=== PATIENT | female | born 1955 | race African-American/Black ===

== ENCOUNTER 2021-01-04 05:47 | Inpatient (IN) | payer OTHER ==
[2020-12-29 16:35] VITALS: BMI 27.1
[2021-01-04] MEDS ORDERED: MIDAZOLAM HCL 2 MG/2 ML SINGLE DOSE VIAL ONE (07:09)
[2021-01-04] MEDS ORDERED: SODIUM CHLORIDE 0.9% P/F 10 ML VIAL IJ ONE ×2 (07:09→07:14)
[2021-01-04] MEDS ORDERED: BUPIVACAINE LIPOSOME/PF (EXPAREL) 266 MG/20 ML VIAL ONE (07:09)
[2021-01-04] MEDS ORDERED: PROPOFOL 20 ML ONE ×2 (07:12)
[2021-01-04] MEDS ORDERED: PHENYLEPHRINE HCL 10 MG/1 ML SINGLE DOSE VIAL ONE (07:14)
[2021-01-04] MEDS ORDERED: EPHEDRINE SULFATE/0.9% NACL/PF 50 MG/10 ML SYRINGE NR ONE (07:15)
[2021-01-04] MEDS ORDERED: SUCCINYLCHOLINE CHLORIDE 200 MG/10 ML SYRINGE ONE (07:16)
[2021-01-04] MEDS ORDERED: ceFAZolin SODIUM 1 GM VIAL ONE ×2 (09:25→10:25)
[2021-01-04] MEDS ORDERED: TRANEXAMIC ACID 1000 MG/10 ML VIAL ONE ×2 (09:29→10:25)
[2021-01-04] MEDS ORDERED: LIDOCAINE HCL/PF 2% SDV 5ML VIAL ONE (09:32)
[2021-01-04] MEDS ORDERED: ONDANSETRON 4 MG/2 ML VIAL ONE (10:19)
[2021-01-04] MEDS ORDERED: DEXAMETHASONE SOD PHOSPHATE 4 MG/1 ML VIAL ONE (10:19)
[2021-01-04] MEDS ORDERED: MAGNESIUM HYDROX 2400MG/30ML ORAL SUSPENSION 30 ML CUP PO PRN (12:05)
[2021-01-04] MEDS ORDERED: LACTATED RINGERS SOLUTION 1,000 ML IV SCH ×2 (12:15→12:30)
[2021-01-04] MEDS ORDERED: ONDANSETRON 4 MG/2 ML VIAL IVPUSH PRN (12:19)
[2021-01-04] MEDS ORDERED: ACETAMINOPHEN 1000 MG/100 ML VIAL (NON FORMULARY) IVPB ONE (12:21)
[2021-01-04] MEDS ORDERED: oxyCODONE HCL 5 MG TABLET PO PRN (12:21)
[2021-01-04] MEDS ORDERED: ACETAMINOPHEN INJECTION 100 ML IVPB ONE (12:27)
[2021-01-04] MEDS: ACETAMINOPHEN 325 MG TABLET (FP) PO SCH ×2 (12:30→18:37)
[2021-01-04] MEDS: ISOSORBIDE DINITRATE 20 MG TABLET PO SCH ×2 (13:45→17:09)
[2021-01-04] MEDS ORDERED: ISOSORBIDE MONONITRATE 20 MG TABLET PO SCH (14:00)
[2021-01-04] MEDS: oxyCODONE HCL 5 MG TABLET PO PRN ×3 (15:01→22:17)
[2021-01-04] MEDS: CEFAZOLIN 2 GM/D5W 2 GM/50 ML ML IVPB SCH ×2 (17:09→22:16)
[2021-01-04] MEDS ORDERED: ISOSORBIDE DINITRATE 20 MG TABLET PO SCH (18:00)
[2021-01-04] MEDS ORDERED: PT OWN MED DRAWER 7, Y5N ONE ×2 (18:33→21:09)
[2021-01-04] MEDS ORDERED: NIFEdipine E.R 60 MG TABLET PO ONE (19:22)
[2021-01-04] MEDS: SENNOSIDES/DOCUSATE COMBO (SENNA PLUS) TABLET (UD) PO SCH (21:17)
[2021-01-04] MEDS: oxyCODONE HCL 10 MG SUSTAINED ACTING TABLET PO SCH (21:17)
[2021-01-04] MEDS: ATORVASTATIN CA 80 MG TABLET (FP) PO SCH (21:17)
[2021-01-04] MEDS: RANOLAZINE E.R. 500 MG TABLET (FP) PO SCH (21:17)
[2021-01-04] MEDS: ASPIRIN 81 MG CHEWABLE TABLETS PO SCH (21:17)
[2021-01-04] MEDS: FERROUS SO4 325 MG TABLET (FP) PO SCH (21:17)
[2021-01-05] MEDS: ACETAMINOPHEN 325 MG TABLET (FP) PO SCH ×3 (00:35→12:14)
[2021-01-05] MEDS: CEFAZOLIN 2 GM/D5W 2 GM/50 ML ML IVPB SCH (05:33)
[2021-01-05] MEDS ORDERED: PT OWN MED DRAWER 7, Y5N ONE ×4 (05:58→21:05)
[2021-01-05] MEDS: NIFEdipine E.R 60 MG TABLET PO SCH ×2 (06:34→10:31)
[2021-01-05 07:23] LABS: HEMATOCRIT 36.9 % (32.4-45.2); HEMOGLOBIN 11.9 GM/dl (10.7-15.3); MCHC 32.3 g/dl (32.0-36.0); MEAN CELL VOLUME 86.8 fl (80-96); MEAN PLT VOLUME 9.4 fl (7.5-11.1); PLATELET COUNT 233 K/MM3 (134-434); RBC 4.25 M/mm3 (3.60-5.2); WHITE BLOOD COUNT 11.6 K/mm3 (4.0-10.8)
[2021-01-05 07:34] LABS: CALCIUM 8.8 mg/dl (8.5-10); CREATININE 2.7 mg/dl (0.55-1.3); POTASSIUM 3.5 mmol/L (3.5-5.1)
[2021-01-05] MEDS ORDERED: CELECOXIB 200 MG CAPSULE PO SCH (10:00)
[2021-01-05] MEDS: PANTOPRAZOLE 40 MG TABLET PO SCH (10:30)
[2021-01-05] MEDS: FOLIC ACID 1 MG TABLET (FP) PO SCH (10:31)
[2021-01-05] MEDS: ASPIRIN 81 MG CHEWABLE TABLETS PO SCH ×2 (10:32→21:11)
[2021-01-05] MEDS: ISOSORBIDE DINITRATE 20 MG TABLET PO SCH ×3 (10:34→17:58)
[2021-01-05] MEDS: ONDANSETRON 4 MG/2 ML VIAL IVPUSH PRN (10:35)
[2021-01-05] MEDS: RANOLAZINE E.R. 500 MG TABLET (FP) PO SCH ×2 (10:37→21:11)
[2021-01-05] MEDS: FERROUS SO4 325 MG TABLET (FP) PO SCH ×2 (10:39→21:11)
[2021-01-05] MEDS: SENNOSIDES/DOCUSATE COMBO (SENNA PLUS) TABLET (UD) PO SCH ×2 (10:39→21:11)
[2021-01-05] MEDS: oxyCODONE HCL 10 MG SUSTAINED ACTING TABLET PO SCH (10:39)
[2021-01-05] MEDS: MAG HYDROX/AL HYDROX/SIMETH 30 ML UNIT-DOSE CUP PO PRN ×2 (10:40→17:54)
[2021-01-05] MEDS ORDERED: morphine SULFATE 4 MG/ML VIAL IVPUSH PRN (14:20)
[2021-01-05] MEDS: ACETAMINOPHEN 500 MG TABLET (FP) PO SCH (17:51)
[2021-01-05] MEDS: ATORVASTATIN CA 80 MG TABLET (FP) PO SCH (21:11)
[2021-01-05] MEDS: traMADol HCL 50 MG TABLET PO PRN (23:26)
[2021-01-06] MEDS: ACETAMINOPHEN 500 MG TABLET (FP) PO SCH ×3 (01:57→13:12)
[2021-01-06 08:07] LABS: ALBUMIN 3.7 g/dl (3.4-5.0); BILIRUBIN,TOTAL 0.7 mg/dl (0.2-1); CALCIUM 8.7 mg/dl (8.5-10); CREATININE 2.7 mg/dl (0.55-1.3); POTASSIUM 3.6 mmol/L (3.5-5.1); TOT PROT 7.1 g/dl (6.4-8.2)
[2021-01-06 08:14] LABS: HEMATOCRIT 37.3 % (32.4-45.2); RBC 4.28 M/mm3 (3.60-5.2)
[2021-01-06 08:18] LABS: HEMOGLOBIN 12.1 GM/dl (10.7-15.3); MCH 28.3 pg (25.7-33.7); MCHC 32.5 g/dl (32.0-36.0); MEAN CELL VOLUME 87.1 fl (80-96); MEAN PLT VOLUME 10.8 fl (7.5-11.1); PLATELET COUNT 232 K/MM3 (134-434); RDW 13.9 % (11.6-15.6); WHITE BLOOD COUNT 12.2 K/mm3 (4.0-10.8)
[2021-01-06] MEDS: ISOSORBIDE DINITRATE 20 MG TABLET PO SCH ×2 (08:18→13:12)
[2021-01-06] MEDS: ONDANSETRON 4 MG/2 ML VIAL IVPUSH PRN (08:19)
[2021-01-06] MEDS ORDERED: PT OWN MED DRAWER 7, Y5N ONE (09:03)
[2021-01-06] MEDS: SENNOSIDES/DOCUSATE COMBO (SENNA PLUS) TABLET (UD) PO SCH (09:11)
[2021-01-06] MEDS: ASPIRIN 81 MG CHEWABLE TABLETS PO SCH (09:11)
[2021-01-06] MEDS: FOLIC ACID 1 MG TABLET (FP) PO SCH (09:12)
[2021-01-06] MEDS: NIFEdipine E.R 60 MG TABLET PO SCH (09:12)
[2021-01-06] MEDS: PANTOPRAZOLE 40 MG TABLET PO SCH (09:12)
[2021-01-06] MEDS: traMADol HCL 50 MG TABLET PO PRN (09:13)
[2021-01-06] MEDS: MAG HYDROX/AL HYDROX/SIMETH 30 ML UNIT-DOSE CUP PO PRN (09:13)
[2021-01-06] MEDS: FERROUS SO4 325 MG TABLET (FP) PO SCH (09:15)
[2021-01-06] MEDS: RANOLAZINE E.R. 500 MG TABLET (FP) PO SCH (09:23)
[2021-01-06 14:03] VITALS: BP 130/50; PULSE 67; TEMP 97.9
== END 2021-01-06 16:12 | disposition home or self-care (01) | DRG 470 ==
LOC: FM/S 05:47
PROVIDERS: ADMIT Orthopaedic Surgery Orthopaedic Surgery of the Spine; ATTEND Orthopaedic Surgery Orthopaedic Surgery of the Spine
PROC: 0SRD0JZ Replacement of Left Knee Joint with Synthetic Substitute, Open Approach (ICD-10-PCS; principal; 2021-01-04 09:54)
DX: M17.12 Unilateral primary osteoarthritis, left knee (principal); E78.5 Hyperlipidemia, unspecified; I25.10 Atherosclerotic heart disease of native coronary artery without angina pectoris; E87.6 Hypokalemia; M81.0 Age-related osteoporosis without current pathological fracture; I12.9 Hypertensive chronic kidney disease with stage 1 through stage 4 chronic kidney disease, or unspecified chronic kidney disease; N18.30 Chronic kidney disease, stage 3 unspecified
CPT/HCPCS: 36415; 73560-TC-LT-FY; 80048; 80053; 82962; 85027; 93005; 94760; 97010-GP; 97116-GP; 97162-GP; J0131

== ENCOUNTER 2021-09-27 05:52 | Inpatient (IN) | payer OTHER ==
[2021-09-25 13:52] VITALS: BMI 26.4
[2021-09-27] MEDS ORDERED: LOCK ITEM NR ONE (06:31)
[2021-09-27] MEDS ORDERED: SODIUM CHLORIDE 0.9% P/F 10 ML VIAL IJ ONE (07:03)
[2021-09-27] MEDS ORDERED: BUPIVACAINE LIPOSOME/PF (EXPAREL) 266 MG/20 ML VIAL ONE (07:03)
[2021-09-27] MEDS ORDERED: BUPIVACAINE HCL/PF 0.5% (5MG/ML) 10 ML VIAL ONE (07:03)
[2021-09-27] MEDS ORDERED: MIDAZOLAM HCL 2 MG/2 ML SINGLE DOSE VIAL ONE ×2 (07:03→07:42)
[2021-09-27] MEDS ORDERED: BUPIVACAINE HCL 50 ML ONE (07:39)
[2021-09-27] MEDS ORDERED: SUCCINYLCHOLINE CHLORIDE 200 MG/10 ML SYRINGE ONE (07:43)
[2021-09-27] MEDS ORDERED: PROPOFOL 20 ML ONE ×4 (07:43→08:23)
[2021-09-27] MEDS ORDERED: TRANEXAMIC ACID 1000 MG/10 ML VIAL ONE (08:36)
[2021-09-27] MEDS ORDERED: BENZOIN 118 ML SPRAY.PUMP TP ONE (09:56)
[2021-09-27] MEDS ORDERED: MAGNESIUM HYDROX 2400MG/30ML ORAL SUSPENSION 30 ML CUP PO PRN (10:31)
[2021-09-27] MEDS ORDERED: MAG HYDROX/AL HYDROX/SIMETH 30 ML UNIT-DOSE CUP PO PRN (10:31)
[2021-09-27] MEDS ORDERED: LACTATED RINGERS SOLUTION 1,000 ML IV SCH ×2 (10:45→11:00)
[2021-09-27] MEDS ORDERED: ONDANSETRON 4 MG/2 ML VIAL IVPUSH PRN (10:51)
[2021-09-27] MEDS ORDERED: oxyCODONE HCL 5 MG TABLET PO PRN (10:53)
[2021-09-27] MEDS: ONDANSETRON 4 MG/2 ML VIAL IVPUSH PRN ×2 (11:50→22:06)
[2021-09-27] MEDS: ACETAMINOPHEN 500 MG TABLET (FP) PO SCH ×2 (13:17→18:09)
[2021-09-27] MEDS: ISOSORBIDE DINITRATE 20 MG TABLET PO SCH ×2 (13:17→18:09)
[2021-09-27] MEDS: oxyCODONE HCL 5 MG TABLET PO PRN ×2 (13:18→16:31)
[2021-09-27] MEDS ORDERED: DEXTROSE 5%-WATER - 50 ML IVPB ONE ×2 (15:51→21:28)
[2021-09-27] MEDS ORDERED: ceFAZolin SODIUM 1 GM VIAL ONE ×2 (15:51→21:28)
[2021-09-27] MEDS: CEFAZOLIN 2 GM in DEXTROSE 5%-WATER - 50 ML IVPB SCH ×2 (16:12→21:57)
[2021-09-27] MEDS ORDERED: KETOROLAC TROMETHAMINE 30 MG/1 ML VIAL IVPUSH PRN (17:40)
[2021-09-27] MEDS: METOCLOPRAMIDE HCL INJECTION 10 MG/2 ML VIAL IVPUSH PRN (18:09)
[2021-09-27] MEDS ORDERED: HYDROmorphone HCl 2 MG/ML VIAL IVPUSH PRN (18:19)
[2021-09-27] MEDS: HYDROmorphone HCl 2 MG/ML VIAL IVPB PRN (18:49)
[2021-09-27] MEDS: SENNOSIDES/DOCUSATE COMBO (SENNA PLUS) TABLET (UD) PO SCH (21:58)
[2021-09-27] MEDS: ASPIRIN COATED 81 MG TABLET.EC PO SCH (21:59)
[2021-09-27] MEDS: oxyCODONE HCL 10 MG SUSTAINED ACTING TABLET PO SCH (21:59)
[2021-09-27] MEDS: RANOLAZINE E.R. 500 MG TABLET (FP) PO SCH (21:59)
[2021-09-27] MEDS ORDERED: FAMOTIDINE 20 MG TABLET PO SCH (22:00)
[2021-09-28] MEDS: METOCLOPRAMIDE HCL INJECTION 10 MG/2 ML VIAL IVPUSH PRN ×2 (00:46→09:00)
[2021-09-28] MEDS: ACETAMINOPHEN 500 MG TABLET (FP) PO SCH ×4 (03:03→18:19)
[2021-09-28] MEDS ORDERED: ceFAZolin SODIUM 1 GM VIAL ONE (03:18)
[2021-09-28] MEDS ORDERED: DEXTROSE 5%-WATER - 50 ML IVPB ONE (03:19)
[2021-09-28] MEDS: HYDROmorphone HCl 2 MG/ML VIAL IVPB PRN (03:23)
[2021-09-28] MEDS: CEFAZOLIN 2 GM in DEXTROSE 5%-WATER - 50 ML IVPB SCH (03:30)
[2021-09-28] MEDS: ONDANSETRON 4 MG/2 ML VIAL IVPUSH PRN (06:10)
[2021-09-28 07:44] LABS: HEMATOCRIT 37.4 % (32.4-45.2); MCHC 32.2 g/dl (32.0-36.0); MEAN PLT VOLUME 9.6 fl (7.5-11.1); PLATELET COUNT 225 10^3/uL (134-434); RBC 4.46 M/mm3 (3.60-5.2); RDW 15.5 % (11.6-15.6); WHITE BLOOD COUNT 12.6 K/mm3 (4.0-10.8)
[2021-09-28 07:59] LABS: CALCIUM 9.5 mg/dl (8.5-10); CREATININE 3.4 mg/dl (0.55-1.3)
[2021-09-28] MEDS ORDERED: ONDANSETRON 4 MG/2 ML VIAL IVPUSH PRN (09:41)
[2021-09-28] MEDS ORDERED: traMADol HCL 50 MG TABLET PO PRN (09:41)
[2021-09-28] MEDS ORDERED: DEXAMETHASONE SOD PHOSPHATE 4 MG/1 ML VIAL IVPUSH PRN (09:41)
[2021-09-28] MEDS: oxyCODONE HCL 10 MG SUSTAINED ACTING TABLET PO SCH ×2 (10:00→22:39)
[2021-09-28] MEDS: RANOLAZINE E.R. 500 MG TABLET (FP) PO SCH ×2 (10:04→21:16)
[2021-09-28] MEDS: SENNOSIDES/DOCUSATE COMBO (SENNA PLUS) TABLET (UD) PO SCH ×2 (10:04→21:21)
[2021-09-28] MEDS: ASPIRIN COATED 81 MG TABLET.EC PO SCH ×2 (10:04→21:16)
[2021-09-28] MEDS: NIFEdipine E.R 60 MG TABLET PO SCH (10:05)
[2021-09-28] MEDS: CELECOXIB 200 MG CAPSULE PO SCH (10:05)
[2021-09-28] MEDS: ISOSORBIDE DINITRATE 20 MG TABLET PO SCH ×3 (10:05→18:18)
[2021-09-28] MEDS: amLODIPine BESYLATE 10 MG TABLET (FP) PO SCH (10:05)
[2021-09-28] MEDS: PANTOPRAZOLE 40 MG TABLET PO SCH (10:05)
[2021-09-28] MEDS: SCOPOLAMINE HYDROBROMIDE 1 PATCH PATCH.TD72 TD SCH ×2 (10:07→12:37)
[2021-09-28] MEDS ORDERED: ACETAMINOPHEN 1000 MG/100 ML VIAL IVPB ONE (11:30)
[2021-09-28 13:14] LABS: EPITHELIAL CELLS FEW /hpf
[2021-09-28] MEDS: oxyCODONE HCL 5 MG TABLET PO PRN (21:17)
[2021-09-28] MEDS ORDERED: ATORVASTATIN CA 80 MG TABLET (FP) PO SCH (22:00)
[2021-09-29] MEDS: ACETAMINOPHEN 500 MG TABLET (FP) PO SCH ×3 (00:09→12:11)
[2021-09-29 07:53] LABS: HEMATOCRIT 35.9 % (32.4-45.2); HEMOGLOBIN 11.8 GM/dl (10.7-15.3); MCH 27.5 pg (25.7-33.7); MCHC 32.9 g/dl (32.0-36.0); MEAN CELL VOLUME 83.7 fl (80-96); MEAN PLT VOLUME 9.9 fl (7.5-11.1); PLATELET COUNT 232 10^3/uL (134-434); RBC 4.29 M/mm3 (3.60-5.2); RDW 15.4 % (11.6-15.6); WHITE BLOOD COUNT 10.7 K/mm3 (4.0-10.8)
[2021-09-29 08:08] LABS: ALBUMIN 3.6 g/dl (3.4-5.0); BILIRUBIN,TOTAL 0.7 mg/dl (0.2-1); CALCIUM 9.5 mg/dl (8.5-10); CREATININE 3.5 mg/dl (0.55-1.3); MAGNESIUM 1.9 mg/dL (1.8-2.4); TOT PROT 7.4 g/dl (6.4-8.2)
[2021-09-29 09:10] VITALS: BP 136/55; PULSE 68; TEMP 98.7
[2021-09-29] MEDS: NIFEdipine E.R 60 MG TABLET PO SCH (09:10)
[2021-09-29] MEDS: ASPIRIN COATED 81 MG TABLET.EC PO SCH (09:10)
[2021-09-29] MEDS: PANTOPRAZOLE 40 MG TABLET PO SCH (09:10)
[2021-09-29] MEDS: ISOSORBIDE DINITRATE 20 MG TABLET PO SCH ×2 (09:10→12:11)
[2021-09-29] MEDS: oxyCODONE HCL 10 MG SUSTAINED ACTING TABLET PO SCH (09:11)
[2021-09-29] MEDS: CELECOXIB 200 MG CAPSULE PO SCH (09:11)
[2021-09-29] MEDS: SENNOSIDES/DOCUSATE COMBO (SENNA PLUS) TABLET (UD) PO SCH (09:11)
[2021-09-29] MEDS: amLODIPine BESYLATE 10 MG TABLET (FP) PO SCH (09:11)
[2021-09-29] MEDS: RANOLAZINE E.R. 500 MG TABLET (FP) PO SCH (09:13)
== END 2021-09-29 12:58 | disposition home or self-care (01) | DRG 302 ==
LOC: FASUSAT 05:52 → FM/S 10:13 → FASUSAT 11:40
PROVIDERS: ADMIT Orthopaedic Surgery Orthopaedic Surgery of the Spine; ATTEND Orthopaedic Surgery Orthopaedic Surgery of the Spine
PROC: 0SRC0J9 Replacement of Right Knee Joint with Synthetic Substitute, Cemented, Open Approach (ICD-10-PCS; principal; 2021-09-27 08:40)
DX: M17.11 Unilateral primary osteoarthritis, right knee (principal); I10 Essential (primary) hypertension; E78.5 Hyperlipidemia, unspecified; I25.10 Atherosclerotic heart disease of native coronary artery without angina pectoris; N18.30 Chronic kidney disease, stage 3 unspecified; I12.9 Hypertensive chronic kidney disease with stage 1 through stage 4 chronic kidney disease, or unspecified chronic kidney disease; E87.6 Hypokalemia; M81.0 Age-related osteoporosis without current pathological fracture; M25.561 Pain in right knee
CPT/HCPCS: 36415; 73560-TC-RT-FY; 80048; 80053; 81003; 81015; 83036; 83735; 85027; 88305-TC; 88311-TC; 94010; 94760; 97010-GP; 97116-GP; 97163-GP; J0131